=== PATIENT | male | born 1990 | race African-American/Black ===

== ENCOUNTER 2016-10-01 21:44 | Emergency (ER) | payer OTHER ==
[~2016-10-01] VITALS: Ht 182.9 cm; Wt 90.7 kg
[2016-10-01 22:36] LABS: ABSOLUTE NEUTROPHILS 8.2 thou/uL (1.4-8.2); BASOPHILS 1.1 % (0.0-2.0); EOSINOPHILS 0.5 % (0.0-3.0); HEMOGLOBIN 13.7 gm/dL (14.0-18.0); LYMPHOCYTES 21.5 % (24.0-44.0); MCH 29.8 pg (26.0-34.0); MCHC 34.3 g/dL (28.0-37.0); MONOCYTES 5.8 % (1.0-8.0); PLATELET COUNT 245 thou/uL (150-400); POLYS 71.1 % (36.0-66.0); RDW 12.7 % (10.5-14.5); WBC 11.5 thou/uL (4.0-11.0)
[2016-10-01 22:37] LABS: MANUAL DIFF NO
[2016-10-01 22:42] LABS: CALCIUM 8.9 mg/dL (8.5-10.1); CREATININE 1.3 mg/dL (0.7-1.3); POTASSIUM 3.7 mmol/L (3.5-5.1)
[2016-10-01] MEDS ORDERED: IBUPROFEN 800800 M1 PO (22:49)
[2016-10-01 23:49] VITALS: BP 118/62
== END 2016-10-01 23:53 | disposition home or self-care (01) ==
LOC: ER 21:44
PROVIDERS: Nurse Practitioner Family
DX: K04.7 Periapical abscess without sinus (principal); F17.210 Nicotine dependence, cigarettes, uncomplicated; F12.10 Cannabis abuse, uncomplicated

== ENCOUNTER 2017-07-06 18:18 | Emergency (ER) | payer OTHER ==
[~2017-07-06] VITALS: Ht 182.9 cm; Wt 86.2 kg
[~2017-07-06 18:18] MED LIST: IBUPROFEN 800800 M1 PO
[2017-07-06] MEDS ORDERED: HYDROCODONE-AP1 EAC6 PO (18:33)
[2017-07-06] MEDS ORDERED: IBUPROFEN 600600 M1 PO (18:33)
== END 2017-07-06 18:53 | disposition home or self-care (01) ==
LOC: ER 18:18
DX: S02.5XXA Fracture of tooth (traumatic), initial encounter for closed fracture (principal); K02.9 Dental caries, unspecified; F17.210 Nicotine dependence, cigarettes, uncomplicated; X58.XXXA Exposure to other specified factors, initial encounter; Y93.89 Activity, other specified; Y92.89 Other specified places as the place of occurrence of the external cause; Y99.8 Other external cause status

== ENCOUNTER 2019-05-09 10:15 | Emergency (ER) | payer OTHER ==
[~2019-05-09] VITALS: Ht 182.9 cm; Wt 90.7 kg
[~2019-05-09 10:15] MED LIST changes: +HYDROCODONE-AP1 EAC6 PO; +IBUPROFEN 600600 M1 PO
[2019-05-09 10:51] LABS: ABSOLUTE NEUTROPHILS 8.2 thou/uL (1.4-8.2); BASOPHILS 0.9 % (0.0-2.0); EOSINOPHILS 0.3 % (0.0-3.0); HEMATOCRIT 46.2 % (42.0-52.0); HEMOGLOBIN 15.9 gm/dL (14.0-18.0); LYMPHOCYTES 16.5 % (24.0-44.0); MCH 30.3 pg (26.0-34.0); MCHC 34.4 g/dL (28.0-37.0); MCV 88.2 fL (80.0-100.0); MONOCYTES 6.9 % (1.0-8.0); PLATELET COUNT 296 thou/uL (150-400); POLYS 75.4 % (36.0-66.0); RBC 5.24 mil/uL (4.50-6.00); WBC 10.9 thou/uL (4.0-11.0)
[2019-05-09 10:56] LABS: URINE BLOOD NEGATIVE (Negative); URINE CLARITY CLOUDY; URINE COLOR YELLOW; URINE GLUCOSE-RANDOM* NEGATIVE (Negative); URINE KETONES 3+ (Negative); URINE LEUKOCYTES-REFLEX NEGATIVE (Negative); URINE NITRITE-REFLEX NEGATIVE (Negative); URINE PROTEIN (DIPSTICK) NEGATIVE (Negative); URINE SPECIFIC GRAVITY >= 1.030 (1.005-1.035); URINE UROBILINOGEN 0.2 E.U./dl (0.2-1.0)
[2019-05-09 10:57] LABS: CALCIUM 10.2 mg/dL (8.5-10.1); CREATININE 1.3 mg/dL (0.7-1.3); POTASSIUM 3.2 mmol/L (3.5-5.1)
[2019-05-09 11:03] LABS: ALBUMIN 4.8 g/dL (3.4-5.0); TOTAL BILIRUBIN 1.2 mg/dL (<0.1-1.0); TOTAL PROTEIN 9.9 g/dL (6.4-8.2)
[2019-05-09 11:42] LABS: ICTOTEST (BILI CONFIRMATORY) Positive (Negative); URINE BILIRUBIN 1+ (Negative)
[2019-05-09 11:43] LABS: URINE REDUCING SUBSTANCE NEGATIVE
[2019-05-09] MEDS ORDERED: LOPERAMIDE 2 MG2 M1 PO (12:16)
[2019-05-09] MEDS ORDERED: ONDANSETRON HCL4 M2 PO (12:16)
[2019-05-09] MEDS ORDERED: POTASSIUM20 PO (12:17)
[2019-05-09 12:50] VITALS: BP 130/68
== END 2019-05-09 12:51 | disposition home or self-care (01) ==
LOC: ER 10:15
PROVIDERS: Physician Assistant
DX: E87.6 Hypokalemia (principal); R11.2 Nausea with vomiting, unspecified; R19.7 Diarrhea, unspecified; F17.210 Nicotine dependence, cigarettes, uncomplicated